=== PATIENT | female | born 1995 | race Caucasian/White ===

== ENCOUNTER → 2016-03-26 | Outpatient (CLI) | payer OTHER ==
[~2016-03-26] MED LIST: CONTRAST GIVEN MC PRN; GADOBUTROL 7.5 MMOL/7.5 ML VIAL INT ART ONE; IOHEXOL 300 MG/ML 50 ML VIAL. INT ART ONE; LIDOCAINE 1% Multi-Dose 20 ML VIAL. ID ONE
--- NOTE | 2016-03-26 13:05 | KCIC ---
PROCEDURE MR arthrogram of the left hip HISTORY Left hip pain. Popping. Symptoms for 4 months. TECHNIQUE: Intra-articular contrast injected prior to scan. Standard 4 plane sequences obtained. COMPARISON None. FINDINGS Small tear identified at the anterior labrum. Articular cartilage intact. No advanced osteoarthritis. No evidence of a bone lesion. No acute fracture. No femoral head osteonecrosis. Gluteus minimus and medius tendons are intact. Hamstring tendon attachment intact. Iliopsoas tendon intact. No acute muscle pathology. No significant soft tissue abnormality. IMPRESSION Small anterior labral tear. Electronically signed by: Michael Guzman MD (Mar 26, 2016 13:04:22)
--- NOTE | 2016-03-26 13:06 | KCIC ---
PROCEDURE: Left hip injection using fluoroscopic guidance, prior to MR. HISTORY: Hip pain. TECHNIQUE: The procedure was explained to the patient as were potential risks, including among others infection, bleeding or allergic reaction. All questions were answered. Informed written and verbal consent was obtained. The hip region was prepped and draped in the usual sterile manner. Following administration of local anesthetic, a 22-gauge needle was advanced into the anterior hip. Following negative aspiration, 12 cc of a solution of 5cc Omnipaque-300 contrast, 5 cc 1% lidocaine, 10 cc normal saline, and 0.1 cc gadolinium was injected without difficulty. The needle was removed. There was good hemostasis at the injection site. The patient left in stable condition without immediate complication. The patient was given postprocedural instructions, and instructed to contact us or the ER if there are any complications. A single spot image is obtained. FLUOROSCOPY TIME: 16 seconds Electronically signed by: Michael Guzman MD (Mar 26, 2016 13:04:49)
== END | disposition home or self-care (01) ==
LOC: KCIC 10:23
PROVIDERS: ATTEND Physician Assistant
DX: S73.192A Other sprain of left hip, initial encounter (principal); X58.XXXA Exposure to other specified factors, initial encounter; Y93.89 Activity, other specified; Y92.89 Other specified places as the place of occurrence of the external cause; Y99.8 Other external cause status
CPT/HCPCS: 73525; 73722; Q9967; A9585